=== PATIENT | male | born 1945 | race Caucasian/White ===

== ENCOUNTER 2017-03-20 08:05 | Day surgery (SDC) | payer OTHER, BC ==
[2017-03-16 13:00] VITALS: BMI 29.2
[2017-03-20] MEDS ORDERED: PROPOFOL 20 ML ONE (08:19)
[2017-03-20 16:08] VITALS: TEMP 98
[2017-03-20 16:22] VITALS: BP 132/62; PULSE 57
--- NOTE | 2017-03-22 15:34 | PATH ---
Surgical Pathology Report Patient Name: NASREEN BELTRAN [facility]. Rec. #: [id number] /Age/Gender: 1945 (Age: 71) / M Account: [id number] Location: [facility] Taken: 03/20/2017 Received: 03/20/2017 Reported: 03/22/2017 Physicians: Gray Pollard M.D. 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 Comment: Findings discussed with Dr. Pollard. Electronically Signed Nancy Loredo M.D. Gross Description Received in formalin labeled "rectum," is a 3.8 x 2.5 x 0.3 cm aggregate of fitzpatrick, polypoid soft tissue fragments. The formalin is filtered and the specimen is entirely submitted in 2 cassettes. 03/21/2017 saudi03/21/2017
== END 2017-03-20 11:20 | disposition home or self-care (01) ==
LOC: FASU-ENDO 08:05
PROVIDERS: ATTEND Internal Medicine Gastroenterology
PROC: 0DBP8ZX Excision of Rectum, Via Natural or Artificial Opening Endoscopic, Diagnostic (ICD-10-PCS; principal; 2017-03-20 10:15)
DX: D12.8 Benign neoplasm of rectum (principal); R19.7 Diarrhea, unspecified
CPT/HCPCS: 88305-TC

== ENCOUNTER 2017-07-26 07:02 | Day surgery (SDC) | payer OTHER, BC ==
[2017-07-24 12:03] VITALS: BMI 30.1
[2017-07-26 07:22] VITALS: TEMP 97.5
[2017-07-26 09:17] VITALS: BP 146/82; PULSE 61
== END 2017-07-26 09:15 | disposition home or self-care (01) ==
LOC: FASU-ENDO 07:02
PROVIDERS: ATTEND Internal Medicine Gastroenterology
PROC: 0DJD8ZZ Inspection of Lower Intestinal Tract, Via Natural or Artificial Opening Endoscopic (ICD-10-PCS; principal; 2017-07-26 08:34)
DX: Z86.010 Personal history of colon polyps (principal); D12.8 Benign neoplasm of rectum

== ENCOUNTER 2023-04-10 09:41 | Day surgery (SDC) | payer OTHER, BC ==
[2023-04-05 15:42] VITALS: BMI 29.2
[2023-04-10 10:51] VITALS: TEMP 97.5
[2023-04-10 10:55] VITALS: BP 144/56; PULSE 68; RESP 20
== END 2023-04-10 10:57 | disposition home or self-care (01) ==
LOC: FASU-ENDO 09:41
PROVIDERS: ATTEND Internal Medicine Gastroenterology
PROC: 0DBP8ZX Excision of Rectum, Via Natural or Artificial Opening Endoscopic, Diagnostic (ICD-10-PCS; principal; 2023-04-10 10:18)
DX: Z12.11 Encounter for screening for malignant neoplasm of colon (principal); D12.8 Benign neoplasm of rectum
CPT/HCPCS: 88305-TC

== ENCOUNTER 2023-12-04 09:04 | Day surgery (SDC) | payer OTHER, BC ==
[2023-11-30 11:35] VITALS: BMI 27.8
[2023-12-04 11:41] VITALS: BP 168/72; PULSE 56; RESP 18
[2023-12-04 11:47] VITALS: TEMP 97.3
== END 2023-12-04 12:02 | disposition home or self-care (01) ==
LOC: FASU-ENDO 09:04
PROVIDERS: ATTEND Internal Medicine Gastroenterology
PROC: 0DBP8ZX Excision of Rectum, Via Natural or Artificial Opening Endoscopic, Diagnostic (ICD-10-PCS; principal; 2023-12-04 11:21)
DX: Z12.11 Encounter for screening for malignant neoplasm of colon (principal); D12.8 Benign neoplasm of rectum; Z86.010 Personal history of colon polyps
CPT/HCPCS: 88305-TC

== ENCOUNTER 2024-12-18 07:21 | Day surgery (SDC) | payer OTHER, BC ==
[2024-12-12 15:39] VITALS: BMI 28.8
[2024-12-18 08:44] VITALS: BP 146/89; PULSE 59; RESP 18; TEMP 97.1
== END 2024-12-18 08:57 | disposition home or self-care (01) ==
LOC: FASU-ENDO 07:21
PROVIDERS: ATTEND Internal Medicine Gastroenterology
PROC: 0DBP8ZX Excision of Rectum, Via Natural or Artificial Opening Endoscopic, Diagnostic (ICD-10-PCS; principal; 2024-12-18 08:11)
DX: D12.8 Benign neoplasm of rectum (principal); K57.30 Diverticulosis of large intestine without perforation or abscess without bleeding; Z86.018 Personal history of other benign neoplasm
CPT/HCPCS: 88305-TC